=== PATIENT | male | born 1970 | race Caucasian/White ===

== ENCOUNTER → 2021-07-22 | Day surgery (SDC) | payer OTHER ==
[~2021-07-22] VITALS: Ht 177.8 cm; Wt 77.1 kg
[~2021-07-22] MED LIST: ALLOPURINOL 30300 MG PO; DILTIAZEM ER180 MG PO; VITAMIN D325 MC4 PO
== END | disposition home or self-care (01) ==
LOC: FAS 06:42
DX: Z12.11 Encounter for screening for malignant neoplasm of colon (principal); Z80.0 Family history of malignant neoplasm of digestive organs; Z88.0 Allergy status to penicillin
CPT/HCPCS: J2704; J7120